=== PATIENT | female | born 1975 | race Caucasian/White ===

== ENCOUNTER 2017-08-27 18:49 | Observation (INO) | payer BC ==
[2017-08-27] MEDS ORDERED: Nitroglycerin 0.4 MG Tab.SL SL PRN (19:04)
[2017-08-27] MEDS ORDERED: Aspirin 81 MG Tab.Chew PO ONE (19:04)
[2017-08-27] MEDS ORDERED: Sodium Chloride 0.9% 5 ML Syringe FLUSH PRN ×2 (19:04→20:26)
--- NOTE | 2017-08-27 19:11 | EDM.PDOC ---
ED HPI GENERAL MEDICAL PROBLEM - General Chief Complaint: Chest Pain Stated Complaint: CHEST PAIN Time Seen by Provider: 08/27/17 18:49 Source of Information: Reports: Patient History Limitations: Reports: No Limitations - History of Present Illness INITIAL COMMENTS - FREE TEXT/NARRATIVE: 42 YO WF presents to ER complaining of substernal chest pain which began today at 12pm. Pt reportsshe was relaxing on the couch when the pain began. Pt states she thought it would go away, but it continued prompting ER evaluation. Pt reports associated shortness of breath and some left shoulder discomfort. Pt denies diaphoresis, nausea/vomiting, or dizziness/lightheadedness. Pt smokes tobacco 1/2 pack x 30 years. Pt denies family history of CAD. Pt denies any similar symptoms in the past. Pt denies use of oral contraception or DVT/PE risk factors. Onset: Today Onset Date: 08/27/17 Onset Time: 12:00 Duration: Hour(s): (7) Location: Reports: Chest Quality: Reports: Ache, Dull Severity: Moderate Improves with: Reports: None Worsens with: Reports: None Associated Symptoms: Reports: Chest Pain, Shortness of Breath. Denies: Cough, cough w sputum, Diaphoresis, Fever/Chills, Nausea/Vomiting, Syncope Bilateral Mid-Sternal Chest Pain Score (Numeric/FACES): 6 - Related Data Allergies Allergy/AdvReac Type Severity Reaction Status Date / Time No Known Drug Allergies Allergy Other Verified 08/27/17 19:04 Home Meds: Home Meds Omeprazole 20 mg PO DAILY 12/02/13 [History] PARoxetine HCl [Paroxetine ER] 25 mg PO DAILY 08/27/17 [History] Past Medical History - Past Health History Medical/Surgical History: Denies Medical/Surgical History Social & Family History - Tobacco Use Smoking Status *Q: Current Every Day Smoker Years of Tobacco use: 25 Used Tobacco, but Quit: No Second Hand Smoke Exposure: Yes - Alcohol Use Days Per Week of Alcohol Use: 2 Number of Drinks Per Day: 5 Total Drinks Per Week: 10 - Recreational Drug Use Recreational Drug Use: No - Living Situation & Occupation Living situation: Reports: with Significant Other Occupation: Employed ED ROS GENERAL - Review of Systems Review Of Systems: See Below Constitutional: Reports: No Symptoms HEENT: Reports: No Symptoms Respiratory: Reports: Shortness of Breath Cardiovascular: Reports: Chest Pain Endocrine: Reports: No Symptoms GI/Abdominal: Reports: No Symptoms : Reports: No Symptoms Musculoskeletal: Reports: No Symptoms Skin: Reports: No Symptoms Neurological: Reports: No Symptoms Psychiatric: Reports: No Symptoms Hematologic/Lymphatic: Reports: No Symptoms Immunologic: Reports: No Symptoms ED EXAM, GENERAL - Physical Exam Exam: See Below Exam Limited By: No Limitations General Appearance: Alert, WD/WN, No Apparent Distress Throat/Mouth: Normal Inspection, Normal Lips, Normal Teeth, Normal Gums, Normal Oropharynx, Normal Voice, No Airway Compromise Head: Atraumatic, Normocephalic Neck: Normal Inspection, Supple, Non-Tender, Full Range of Motion Respiratory/Chest: No Respiratory Distress, Lungs Clear, Normal Breath Sounds, No Accessory Muscle Use, Chest Non-Tender Cardiovascular: Normal Peripheral Pulses, Regular Rate, Rhythm, No Edema, No Gallop, No JVD, No Murmur, No Rub GI/Abdominal: Normal Bowel Sounds, Soft, Non-Tender, No Organomegaly, No Distention, No Abnormal Bruit, No Mass Back Exam: Normal Inspection, Full Range of Motion, NT Extremities: Normal Inspection, Normal Range of Motion, Non-Tender, Normal Capillary Refill, No Pedal Edema Neurological: Alert, Oriented, CN II-XII Intact, Normal Cognition, Normal Gait, Normal Reflexes, No Motor/Sensory Deficits Psychiatric: Normal Affect, Normal Mood Skin Exam: Warm, Dry, Intact, Normal Color, No Rash Lymphatic: No Adenopathy EKG INTERPRETATION EKG Date: 08/27/17 Time: 18:54 Rhythm: NSR Rate (Beats/Min): 78 [place]: Normal P-Wave: Present QRS: Normal ST-T: Normal QT: Normal Comparison: NA - No Prior EKG Course - Vital Signs Last Recorded V/S: Last Vital Signs Temp 37.4 C 08/27/17 19:00 Pulse 70 08/27/17 20:03 Resp 18 08/27/17 20:10 BP 114/63 08/27/17 20:03 Pulse Ox 97 08/27/17 20:10 - Orders/Labs/Meds Orders: Active Orders 24 hr Category Date Time Status Cardiac Monitoring [RC] . DIRECTED Care 08/27/17 19:04 Active EKG Documentation Completion [RC] ASDIRECTED Care 08/27/17 19:05 Active Oxygen Therapy, ED [RC] ASDIRECTED Care 08/27/17 19:04 Active Peripheral IV Care [RC] . DIRECTED Care 08/27/17 19:05 Active Chest 2V [CR] Stat Exams 08/27/17 19:04 Ordered INR,PT,PROTHROMBIN TIME [COAG] Stat Lab 08/27/17 19:04 Ordered PTT,PARTIAL THROMBOPLSTIN TIME [COAG] Stat Lab 08/27/17 19:04 Ordered Nitroglycerin [Nitrostat] Med 08/27/17 19:04 Active 0.4 mg SL Q5M PRN Sodium Chloride 0.9% [Syrex Flush] Med 08/27/17 19:04 Active 5 ml FLUSH Q8HR PRN Peripheral IV Insertion Adult [OM.PC] Routine Oth 08/27/17 19:04 Ordered EKG 12 Lead [EK] Routine Ther 08/27/17 19:04 Ordered Medication Orders Nitroglycerin (Nitrostat) 0.4 mg SL Q5M PRN PRN Reason: Chest Pain Last Admin: 08/27/17 19:19 Dose: 0.4 mg Sodium Chloride (Syrex Flush) 5 ml FLUSH Q8HR PRN PRN Reason: Keep Vein Open Labs: Laboratory Tests 08/27/17 08/27/17 Range/Units 18:57 18:57 WBC 8.2 (5.0-10.0) 10^3/uL RBC 4.49 (3.80-5.50) 10^6/uL Hgb 13.8 (12.0-16.0) g/dL Hct 41.5 (37.0-47.0) % MCV 92.5 H (82.0-92.0) fL MCH 30.8 (27.0-31.0) pg MCHC 33.3 (32.0-36.0) g/dL RDW 13.3 (11.5-14.5) % Plt Count 322 H (150-300) 10^3/uL MPV 8.3 (7.4-10.4) fL Neut % (Auto) 56.2 (50.0-70.0) % Lymph % (Auto) 33.6 (20.0-40.0) % [place] % (Auto) 7.3 (2.0-8.0) % Eos % (Auto) 1.6 (1.0-3.0) % Baso % (Auto) 1.3 H (0.0-1.0) % Neut # (Auto) 4.6 (2.5-7.0) 10^3/uL Lymph # (Auto) 2.8 (1.0-4.0) 10^3/uL [place] # (Auto) 0.6 (0.1-0.8) 10^3/uL Eos # (Auto) 0.1 (0.1-0.3) 10^3/uL Baso # (Auto) 0.1 (0.0-0.1) 10^3/uL Sodium 141 (136-145) mmol/L Potassium 3.3 (3.3-5.3) mmol/L Chloride 103 (98-115) mmol/L Carbon Dioxide 24.5 (21.0-32.0) mmol/L BUN 10 (6-25) mg/dL Creatinine 0.56 (0.51-1.17) mg/dL Est Cr Clr Drug Dosing 124.67 mL/min Estimated GFR (MDRD) > 60 mL/min Glucose 97 (70-110) mg/dL Calcium 8.7 (8.7-10.3) mg/dL Total Bilirubin 0.2 (0.2-1.0) mg/dL AST 17 (15-37) U/L ALT 33 (12-78) U/L Alkaline Phosphatase 84 (46-116) IU/L Creatine Kinase 132 (26-276) U/L CK-MB (CK-2) 1.30 (0.00-4.30) ng/mL Troponin I < 0.04 (0.00-0.070) ng/mL Total Protein 7.0 (6.4-8.2) g/dL Albumin 3.53 (3.00-4.80) g/dL Meds: Medications Generic Name Dose Route Start Last Admin Trade Name Freq PRN Reason Stop Dose Admin Nitroglycerin 0.4 mg 08/27/17 19:04 08/27/17 19:19 Nitrostat SL 0.4 mg Q5M PRN Administration Chest Pain Sodium Chloride 5 ml 08/27/17 19:04 Syrex Flush FLUSH Q8HR PRN Keep Vein Open Discontinued Medications Generic Name Dose Route Start Last Admin Trade Name Freq PRN Reason Stop Dose Admin Aspirin 324 mg 08/27/17 19:04 08/27/17 19:14 Aspirin PO 08/27/17 19:05 324 mg ONETIME ONE Administration Morphine Sulfate 4 mg 08/27/17 19:49 08/27/17 20:02 Morphine IVPUSH 08/27/17 19:50 4 mg ONETIME ONE Administration Morphine Sulfate Confirm 08/27/17 19:51 08/27/17 20:02 Morphine Administered 08/27/17 19:52 Not Given Dose 4 mg .ROUTE .STK-MED ONE Ondansetron HCl 4 mg 08/27/17 19:49 08/27/17 19:58 Zofran IVPUSH 08/27/17 19:50 4 mg ONETIME ONE Administration Ondansetron HCl Confirm 08/27/17 19:51 08/27/17 20:02 Zofran Administered 08/27/17 19:52 Not Given Dose 4 mg .ROUTE .STK-MED ONE - Radiology Interpretation Free Text/Narrative:: CXR- NAD Departure - Departure Time of Disposition: 20:22 Disposition: Refer to Observation Condition: Good Clinical Impression: Atypical chest pain Referrals: Cathi Maynard, [employer] [Primary Care Provider] - Forms: ED Department Discharge - My Orders Last 24 Hours: My Active Orders 08/27/17 19:04 Cardiac Monitoring [RC] . DIRECTED Oxygen Therapy, ED [RC] ASDIRECTED Chest 2V [CR] Stat INR,PT,PROTHROMBIN TIME [COAG] Stat PTT,PARTIAL THROMBOPLSTIN TIME [COAG] Stat Nitroglycerin [Nitrostat] 0.4 mg SL Q5M PRN Sodium Chloride 0.9% [Syrex Flush] 5 ml FLUSH Q8HR PRN Peripheral IV Insertion Adult [OM.PC] Routine EKG 12 Lead [EK] Routine 08/27/17 19:05 EKG Documentation Completion [RC] ASDIRECTED Peripheral IV Care [RC] . DIRECTED - Assessment/Plan Last 24 Hours: My Active Orders 08/27/17 19:04 Cardiac Monitoring [RC] . DIRECTED Oxygen Therapy, ED [RC] ASDIRECTED Chest 2V [CR] Stat INR,PT,PROTHROMBIN TIME [COAG] Stat PTT,PARTIAL THROMBOPLSTIN TIME [COAG] Stat Nitroglycerin [Nitrostat] 0.4 mg SL Q5M PRN Sodium Chloride 0.9% [Syrex Flush] 5 ml FLUSH Q8HR PRN Peripheral IV Insertion Adult [OM.PC] Routine EKG 12 Lead [EK] Routine 08/27/17 19:05 EKG Documentation Completion [RC] ASDIRECTED Peripheral IV Care [RC] . DIRECTED Assessment:: 1. Chest pain Plan: 1. admit for 23 obs- [place] [place] 2. ASA/nitro 3. oxygen 4. supportive care
[2017-08-27 19:35] LABS: CHLORIDE,CL 103 mmol/L (98-115); SODIUM,NA 141 mmol/L (136-145)
[2017-08-27] MEDS ORDERED: Morphine 4 MG/ML Syringe IVPUSH ONE (19:49)
[2017-08-27] MEDS ORDERED: Ondansetron 4 MG/2 ML SDV IVPUSH ONE (19:49)
[2017-08-27] MEDS ORDERED: Ondansetron 4 MG/2 ML SDV ONE (19:51)
[2017-08-27] MEDS ORDERED: Morphine 4 MG/ML Syringe ONE (19:51)
[2017-08-27] MEDS ORDERED: Morphine 2 MG/ML Syringe IVPUSH PRN (20:26)
[2017-08-27] MEDS ORDERED: Ondansetron 4 MG/2 ML SDV IV PRN (20:26)
[2017-08-27] MEDS ORDERED: Nitroglycerin 2% Oint 1 GM UD Packet TOP SCH (20:30)
[2017-08-27] MEDS ORDERED: ALPRAZolam 0.25 MG Tab PO ONE (21:33)
--- NOTE | 2017-08-27 21:33 | PCM.HP ---
H&P History of Present Illness - General Date of Service: 08/27/17 Admit Problem/Dx: Admission Diagnosis/Problem Admission Diagnosis/Problem Chest pain Source of Information: Patient, Provider, RN History Limitations: Reports: No Limitations - History of Present Illness Initial Comments - Free Text/Narative: This 42-year-old female presenting to the ED complaining of chest pain. Today after lunch she was on her couch when she started having chest pain left and right anterior and slightly down into epigastric region with associated nausea, no diaphoresis however she felt hot/flush denies any lightheadedness or vomiting. Cardiovascular risk includes current tobacco use [id number]. 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 History: Reports: , Other (See Below) Other OB/BYN History: preg x 2 Neurological History: Reports: Migraines Psychiatric History: Reports: Anxiety, Panic Attack - Infectious Disease History Infectious Disease History: Reports: Chicken Pox - Past Surgical History HEENT Surgical History: Reports: LASIK Respiratory Surgical History: Reports: None Neurological Surgical History: Reports: None Social & Family History - Family History HEENT: Reports: None Cardiac: Reports: None Respiratory: Reports: None GI: Reports: None : Reports: None OBGYN: Reports: None Musculoskeletal: Reports: None Neurological: Reports: None Psychiatric: Reports: Depression (father with depression, Alive) Endocrine/Metabolic: Reports: Diabetes, type II (Father with DM--alive) Hematologic: Reports: None Immunologic: Reports: None Dermatologic: Reports: None Oncologic: Reports: None - Tobacco Use Smoking Status *Q: Current Every Day Smoker Years of Tobacco use: 25 Packs/Tins Daily: 0.5 Used Tobacco, but Quit: No Second Hand Smoke Exposure: Yes - Caffeine Use Caffeine Use: Reports: Soda - Alcohol Use Days Per Week of Alcohol Use: 2 Number of Drinks Per Day: 5 Total Drinks Per Week: 10 - Recreational Drug Use Recreational Drug Use: No - Living Situation & Occupation Living situation: Reports: with Significant Other Occupation: Employed H&P Review of Systems - Review of Systems: Review Of Systems: See Below General: Reports: No Symptoms HEENT: Reports: No Symptoms Pulmonary: Reports: Cough Cardiovascular: Reports: Chest Pain. Denies: Orthopnea, PND, Edema, Blood Pressure Problem Genitourinary: Reports: No Symptoms Musculoskeletal: Reports: No Symptoms Skin: Reports: No Symptoms Psychiatric: Reports: Mood Lability Neurological: Reports: No Symptoms Hematologic/Lymphatic: Reports: No Symptoms Immunologic: Reports: No Symptoms Exam - Exam Exam: See Below - Vital Signs Vital Signs: Last Vital Signs Temp 98.1 F 08/27/17 20:26 Pulse 66 08/27/17 20:26 Resp 16 08/27/17 20:26 BP 124/69 08/27/17 20:26 Pulse Ox 97 08/27/17 20:26 Weight: 160 lb - Exam Quality Assessment: No: Supplemental Oxygen General: Alert, Oriented, Cooperative HEENT: Mucosa Moist & [place] Neck: Supple, Trachea Midline, 2 Lungs: Clear to Auscultation, Normal Respiratory Effort Cardiovascular: Regular Rate, Regular Rhythm, Normal S1, Normal S2. No: Rubs, Gallop/S3, Gallop/S4 GI/Abdominal Exam: Normal Bowel Sounds, Soft, No Distention, No Abnormal Bruit Back Exam: No: CVA Tenderness (L), CVA Tenderness (R) Extremities: No Pedal Edema. No: Pedal Edema Peripheral Pulses: 2+: Radial (L), Radial (R) Skin: Other (Generalize sun exposure anterior chest and face and neck) Neurological: Cranial Nerves Intact, Reflexes Equal Bilateral Neuro Extensive - Mental Status: Alert, Oriented x3, Normal Mood/Affect, Normal Cognition Neuro Extensive - Motor, Sensory, Reflexes: CN II-XII Intact, Normal Gait, Normal Reflexes Psychiatric: Alert, Normal Affect, Normal Mood - Patient Data Lab Results Last 24 hrs: Laboratory Results - last 24 hr 08/27/17 08/27/17 Range/Units 18:57 18:57 WBC 8.2 (5.0-10.0) 10^3/uL RBC 4.49 (3.80-5.50) 10^6/uL Hgb 13.8 (12.0-16.0) g/dL Hct 41.5 (37.0-47.0) % MCV 92.5 H (82.0-92.0) fL MCH 30.8 (27.0-31.0) pg MCHC 33.3 (32.0-36.0) g/dL RDW 13.3 (11.5-14.5) % Plt Count 322 H (150-300) 10^3/uL MPV 8.3 (7.4-10.4) fL Neut % (Auto) 56.2 (50.0-70.0) % Lymph % (Auto) 33.6 (20.0-40.0) % [place] % (Auto) 7.3 (2.0-8.0) % Eos % (Auto) 1.6 (1.0-3.0) % Baso % (Auto) 1.3 H (0.0-1.0) % Neut # (Auto) 4.6 (2.5-7.0) 10^3/uL Lymph # (Auto) 2.8 (1.0-4.0) 10^3/uL [place] # (Auto) 0.6 (0.1-0.8) 10^3/uL Eos # (Auto) 0.1 (0.1-0.3) 10^3/uL Baso # (Auto) 0.1 (0.0-0.1) 10^3/uL Sodium 141 (136-145) mmol/L Potassium 3.3 (3.3-5.3) mmol/L Chloride 103 (98-115) mmol/L Carbon Dioxide 24.5 (21.0-32.0) mmol/L BUN 10 (6-25) mg/dL Creatinine 0.56 (0.51-1.17) mg/dL Est Cr Clr Drug Dosing 124.67 mL/min Estimated GFR (MDRD) > 60 mL/min Glucose 97 (70-110) mg/dL Calcium 8.7 (8.7-10.3) mg/dL Total Bilirubin 0.2 (0.2-1.0) mg/dL AST 17 (15-37) U/L ALT 33 (12-78) U/L Alkaline Phosphatase 84 (46-116) IU/L Creatine Kinase 132 (26-276) U/L CK-MB (CK-2) 1.30 (0.00-4.30) ng/mL Troponin I < 0.04 (0.00-0.070) ng/mL Total Protein 7.0 (6.4-8.2) g/dL Albumin 3.53 (3.00-4.80) g/dL Result Diagrams: 08/27/17 18:57 08/27/17 18:57 EKG INTERPRETATION Rhythm: NSR [place]: Normal P-Wave: Present QRS: Normal ST-T: Normal QT: Normal Comparison: NA - No Prior EKG Problem List Initiated/Reviewed/Updated: Yes Orders Last 24hrs: Active Orders 24 hr Category Date Time Status Patient Status Manage Transfer [TRANSFER] Routine ADT 08/27/17 20:22 Ordered Patient Status [ADT] Routine ADT 08/27/17 20:26 Ordered Bedrest Bathroom Privileges [RC] ASDIRECTED Care 08/27/17 20:26 Active Cardiac Monitoring [RC] . DIRECTED Care 08/27/17 19:04 Active Cardiac Monitoring [RC] CONTINUOUS Care 08/27/17 20:26 Active EKG Documentation Completion [RC] ASDIRECTED Care 08/27/17 19:05 Active Oxygen Therapy [RC] PRN Care 08/27/17 20:26 Active Oxygen Therapy, ED [RC] ASDIRECTED Care 08/27/17 19:04 Active Peripheral IV Care [RC] . DIRECTED Care 08/27/17 19:05 Active Peripheral IV Care [RC] . DIRECTED Care 08/27/17 20:28 Active VTE/DVT Education [RC] PER UNIT ROUTINE Care 08/27/17 20:26 Active Vital Signs [RC] Q4H Care 08/27/17 20:26 Active 2 Gram Sodium Diet [DIET] Diet 08/28/17 Breakfast Active Chest 2V [CR] Stat Exams 08/27/17 19:04 Ordered INR,PT,PROTHROMBIN TIME [COAG] Stat Lab 08/27/17 19:04 Ordered PTT,PARTIAL THROMBOPLSTIN TIME [COAG] Stat Lab 08/27/17 19:04 Ordered TROPONIN I [CHEM] AM Lab 08/28/17 05:11 Ordered TROPONIN I [CHEM] Routine Lab 08/28/17 01:00 Ordered Aspirin [Ecotrin] Med 08/28/17 09:00 Active 325 mg PO DAILY Morphine Med 08/27/17 20:26 Active 2 mg IVPUSH Q2H PRN Nitroglycerin [Nitro-Bid 2%] Med 08/27/17 20:30 Active 1 gm TOP Q6H Nitroglycerin [Nitrostat] Med 08/27/17 19:04 Active 0.4 mg SL Q5M PRN Ondansetron [Zofran] Med 08/27/17 20:26 Active 4 mg IV Q6H PRN Sodium Chloride 0.9% [Syrex Flush] Med 08/27/17 19:04 Active 5 ml FLUSH Q8HR PRN Sodium Chloride 0.9% [Syrex Flush] Med 08/27/17 20:26 Active 5 ml FLUSH Q8HR PRN Peripheral IV Insertion Adult [OM.PC] Routine Oth 08/27/17 19:04 Ordered Peripheral IV Insertion Adult [OM.PC] Routine Oth 08/27/17 20:26 Ordered Resuscitation Status Routine Resus Stat 08/27/17 20:26 Ordered EKG 12 Lead [EK] Routine Ther 08/27/17 19:04 Ordered Medication Orders Aspirin (Ecotrin) 325 mg PO DAILY [place]LOE Morphine Sulfate (Morphine) 2 mg IVPUSH Q2H PRN PRN Reason: Pain (severe 7-10) Nitroglycerin (Nitrostat) 0.4 mg SL Q5M PRN PRN Reason: Chest Pain Last Admin: 08/27/17 19:19 Dose: 0.4 mg Nitroglycerin (Nitro-Bid 2%) 1 gm TOP Q6H CHLOE Ondansetron HCl (Zofran) 4 mg IV Q6H PRN PRN Reason: Nausea/Vomiting Sodium Chloride (Syrex Flush) 5 ml FLUSH Q8HR PRN PRN Reason: Keep Vein Open Sodium Chloride (Syrex Flush) 5 ml FLUSH Q8HR PRN PRN Reason: Keep Vein Open Assessment/Plan Comment:: HISTORY OF PRESENT ILLNESS This 42-year-old female presenting to the ED complaining of chest pain. Today after lunch she was on her couch when she started having chest pain left and right anterior and slightly down into epigastric region with associated nausea, no diaphoresis however she felt hot/flush denies any lightheadedness or vomiting. Cardiovascular risk includes current tobacco use [id number]. HLD ED workup included Nitroglycerin in ED did not improve pain negative first cardiac biomarkers Normal electrolytes VSS Primary problems Chest pain, rule out [place], likely noncardiac etiology GERD, likely etiology Chronic problems Tobacco dependency, refusing replacement therapy tonight Hyperlipidemia Depression, fair control with SSRI Overall plan, telemetry tonight, doubtful cardiac etiology, hold off on any nitrates, GI cocktail 1 now, alprazolam 0.5 mg 1 now. Continue assessing cardiac enzymes, anticipate short stay.
[2017-08-27] MEDS ORDERED: Nicotine 14 MG/24 Hr Patch ONE (21:47)
[2017-08-27] MEDS ORDERED: GI Cocktail 45 ML BOTTLE PO ONE (22:01)
[2017-08-27] MEDS: Nicotine 14 MG/24 Hr Patch TRDERM SCH (22:06)
[2017-08-28] MEDS ORDERED: Atropine 0.1 MG/ML 10 ML Syringe IVPUSH PRN (00:37)
[2017-08-28] MEDS ORDERED: Lidocaine 2% 100 MG/5 ML Syringe IVPUSH PRN (00:37)
[2017-08-28] MEDS ORDERED: EPINEPHrine 1:10,000 1 MG/10 ML Syringe IVPUSH PRN (00:37)
[2017-08-28] MEDS ORDERED: Nitroglycerin 0.4 MG Tab.SL SL PRN (00:37)
[2017-08-28] MEDS: Acetaminophen 325 MG Tab PO PRN ×2 (02:12→07:31)
[2017-08-28 06:32] VITALS: BP 94/58
[2017-08-28] MEDS ORDERED: Omeprazole 20 MG Cap.CR PO SCH (09:00)
[2017-08-28] MEDS ORDERED: PAROXETINE 25 MG PO SCH (09:00)
[2017-08-28] MEDS ORDERED: Aspirin 325 MG Tab.EC PO SCH (09:00)
[2017-08-28] MEDS: Nicotine 14 MG/24 Hr Patch TRDERM SCH (11:20)
--- NOTE | 2017-08-29 09:44 | DISCH ---
FINAL DIAGNOSES: Rule out myocardial infarction, this has been ruled out. Chest pain, likely noncardiac etiology. Anxiety with slight exacerbation Gastroesophageal reflux disease, likely etiology. Chronic problems include Tobacco dependency. (non-contemplatory stage of quitting) Depression/anxiety, needs improved control. HLD BRIEF HISTORY: This 42-year-old female. She came to the ED complaining of chest pain late last night. Yesterday, after lunch, she was on her couch. She started to have some chest pain, left anterior, slightly down into the epigastric region with some associated nausea. No diuresis. However, she did feel hot and flushed. She denies any lightheadedness or vomiting. Cardiovascular risk profile does include tobacco use with a 15-pack year current smoker. She does have hyperlipidemia. 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 She feels safe. She is in a current relationship. Denies any recent stressors. However, she does admit that she recently had her SSRIs crossed tapered and she feels like this is not well controlled right now for her anxiety and depression. HOSPITAL STAY: She was admitted late. I did come and evaluate the patient. I did give her alprazolam last night, which did seem to help her. She was chest pain free throughout the night. She was given nitroglycerin in the ED along with GI cocktail. However, it is doubtful that the nitroglycerin provided any relief. Her pain was spontaneously resolved in my opinion. Vital signs were stable. She was on telemetry. I reviewed the strips this morning, no aberrancies. She did have troponin x3 which were below threshold. Sodium, potassium, BUN, creatinine, all LFTs, all CK-MB, and proteins were normal. INR 1.0. White count normal. Hemoglobin and hematocrit normal. No neutrophilia. No signs of inflammation. However, did have a platelet count of 322, likely reactive. PHYSICAL EXAMINATION: VITAL SIGNS: Weight is 160, temperature 98, blood pressure 95/58, O2 sats 93%. LUNGS: Clear to auscultation. CV: Regular rate and rhythm. No S3. No rub. No muffled sounds. GI: Nontender. EXTREMITIES: She had no edema. DIAGNOSTICS: EKG normal sinus rhythm without any ST morphology. Chest x-ray, negative exams. Heart and lungs appearance are normal. This was independently read by myself. MEDICATION CHANGES AND ADJUSTMENTS: 1. Alprazolam 0.25 mg p.o. every 8 hours p.r.n. for anxiety. 2. Omeprazole 20 mg p.o. before breakfast, #40 given. 3. The patient can continue on all her other home medications; however, will need some adjustments desires to go back on Lexapro, likely will need to be cross tapered. DISPOSITION: The patient was ready for discharge. She was pain free. She was hemodynamically stable. She felt comfortable to go home. She will have to follow up with Cathi Maynard. Recommend cross covering placing her back on Lexapro. Continue ongoing tobacco cessation counseling. I placed her on PPI therapy. She cannot return to work until she sees her primary care provider. She is to report any chest pain, any shortness of breath. Doubtful this is cardiac etiology. /[id number]/MODL MTDD
== END 2017-08-28 10:43 | disposition home or self-care (01) ==
LOC: KA.ED 18:49 → KA.MS 20:22
PROVIDERS: ADMIT Physician Assistant Medical; ATTEND Nurse Practitioner Family
DX: R07.89 Other chest pain (principal); F17.210 Nicotine dependence, cigarettes, uncomplicated; E78.5 Hyperlipidemia, unspecified; K21.9 Gastro-esophageal reflux disease without esophagitis; F41.9 Anxiety disorder, unspecified; F32.9 Major depressive disorder, single episode, unspecified; Z79.899 Other long term (current) drug therapy
CPT/HCPCS: 36415; 71046; 80053; 82550; 82553; 84484; 85025; 85610; 85730; 93005; 96374; 96375; 99285; A9270-GY; G0378; J2270; J2405